=== PATIENT | male | born 1935 | race Caucasian/White ===

== ENCOUNTER → 2017-05-21 | Outpatient (CLI) | payer MEDICARE ==
[~2017-05-21] MED LIST: ALPR0.25 PO; AMLO5TAB96 PO; ASPI-130 PO; CENTTAB9 PO; COMBAER INH; FERR324T4 PO; GABA300C3 PO; METO25 PO; MONT10TA2 PO; OMEP20TA PO; ROSU20 PO; SYMB160A INH; VITA400C28 PO
--- NOTE | 2017-05-22 10:36 | RSPPFT ---
DATE OF PROCEDURE: 05/21/17 COMMENTS: Spirometry shows FVC of 2.1 at 57% of predicted, FEV1 of 0.6 at 23%, FEV1/FVC ratio is decreased. Flow is decreased at FEF 25, FEF 50, FEF 75 and FEF 25-75. There is a good response after bronchodilator treatment. Diffusion capacity is decreased. Flow volume loop indicates an obstructive pattern. Room air arterial blood gases show pH of 7.43, PCO2 of 35, PO2 of 79, BiCarb of 24. 6-minute walk test shows no de-saturation. IMPRESSION: 1. Very severe obstructive lung disease. 2. Good response after bronchodilator treatment. 3. Lung volumes show mild hypoxia,. 4. Decreased diffusion capacity. 5. 6-minute walk test shows no de-saturation.
== END ==
LOC: HRSP 13:01
PROVIDERS: ATTEND Specialist
DX: J44.9 Chronic obstructive pulmonary disease, unspecified (principal)
CPT/HCPCS: 36600; 82805; 94060; 94618; 94729